=== PATIENT | female | born 1990 | race Caucasian/White ===

== ENCOUNTER 2017-05-20 04:16 | Inpatient (IN) | payer OTHER ==
[2017-05-20] MEDS ORDERED: Dibucaine 1% 28.35 GM TUBE PR PRN (06:10)
[2017-05-20] MEDS ORDERED: Glycerin ADULT SUPP PR PRN (06:10)
[2017-05-20] MEDS ORDERED: Varicella Virus Vaccine Live* 0.5 ML VIAL SUBCUT ONE (06:10)
[2017-05-20] MEDS ORDERED: Witch Hazel PAD* JAR TOPICAL PRN (06:10)
[2017-05-20] MEDS ORDERED: Measles, Mumps,Rubella VACC* 0.5 ML/VIAL SUBCUT ONE (06:10)
[2017-05-20] MEDS ORDERED: Acetaminophen TAB* 325 MG PO PRN (06:10)
[2017-05-20] MEDS ORDERED: OXYTOCIN* 10 UNITS/ML 1 ML VIAL IM ONE (06:10)
[2017-05-20] MEDS: Ibuprofen TAB* 600 MG PO PRN ×3 (06:44→21:51)
[2017-05-20] MEDS ORDERED: Misoprostol TAB* 200 MCG ONE (08:02)
[2017-05-20] MEDS ORDERED: Misoprostol TAB* 200 MCG PO ONE (08:14)
[2017-05-20] MEDS ORDERED: Simethicone CHEW TAB* 80 MG PO SCH (08:30)
[2017-05-20] MEDS ORDERED: Buprenorphine TAB* 8 MG PO SCH ×2 (09:00→17:00)
[2017-05-20] MEDS: Buprenorphine TAB* 8 MG PO SCH ×2 (11:00→18:38)
[2017-05-20] MEDS: Docusate CAP* 100 MG PO SCH ×3 (11:01→21:51)
[2017-05-21 07:13] LABS: Hematocrit 35 % (35-47); Hemoglobin 11.3 g/dl (12.0-16.0); Mean Corpuscular HGB Conc 33 g/dl (31-36); Mean Corpuscular Hemoglobin 27 pg (27-31); Mean Corpuscular Volume 81 fL (80-97); Mean Platelet Volume 12 um3 (7.4-10.4); Red Blood Count 4.24 10^6/ul (4.0-5.4); Red Cell Distribution Width 14 % (10.5-15); White Blood Count 9.3 10^3/ul (3.5-10.8)
[2017-05-21] MEDS: Docusate CAP* 100 MG PO SCH ×3 (08:55→20:38)
[2017-05-21] MEDS: Buprenorphine TAB* 8 MG PO SCH ×2 (08:55→17:12)
[2017-05-21] MEDS ORDERED: Ferrous Gluconate TAB* 324 MG TAB PO SCH (09:00)
[2017-05-22 08:12] VITALS: BP 139/79
[2017-05-22] MEDS: Buprenorphine TAB* 8 MG PO SCH ×2 (10:17→18:30)
[2017-05-22] MEDS: Docusate CAP* 100 MG PO SCH ×2 (10:18→15:35)
[2017-05-23 21:08] LABS: Urine Tetrahydrocannabinol Negative ng/mL (Cutoff: 50)
== END 2017-05-22 20:32 | disposition home or self-care (01) | DRG 541 ==
LOC: MCHOBOUT 04:16 → MCHOB 04:32
PROVIDERS: ADMIT Midwife; ATTEND Obstetrics & Gynecology
PROC: 4A1HX4Z Monitoring of Products of Conception, Cardiac Electrical Activity, External Approach (ICD-10-PCS; principal; 2017-05-20)
PROC: 10E0XZZ Delivery of Products of Conception, External Approach (ICD-10-PCS; 2017-05-20)
PROC: 10D17ZZ Extraction of Products of Conception, Retained, Via Natural or Artificial Opening (ICD-10-PCS; 2017-05-20)
DX: O69.89X0 Labor and delivery complicated by other cord complications, not applicable or unspecified (principal); O98.42 Viral hepatitis complicating childbirth; O48.0 Post-term pregnancy; B19.20 Unspecified viral hepatitis C without hepatic coma; O99.824 Streptococcus B carrier state complicating childbirth; Z3A.40 40 weeks gestation of pregnancy; Z37.0 Single live birth; O71.89 Other specified obstetric trauma
CPT/HCPCS: 36415; 80307; 85025; A9270-GY; J2590

== ENCOUNTER 2019-03-21 10:00 | Emergency (ER) | payer OTHER ==
--- NOTE | 2019-03-21 10:54 | UC ---
Back Pain HPI - HPI Summary HPI Summary: 28 yo female presents with cloudy and malodorous urine for the last 3 days. Today developed left flank pain. She has never had a UTI before, but states her friend told her this is what might be happening. She has had no injury to her back recently. Denies fever, n/v, vaginal bleeding or discharge. She also mentions that for the last 2-3 months she has been having intermittent right hip pain without known injury. Nothing makes it better or worse and occurs at random times. - History of Current Complaint Chief Complaint: UCGeneralIllness Stated Complaint: LOWER BACK PAIN Time Seen by Provider: 03/21/19 10:53 Hx Obtained From: Patient Hx Last Menstrual Period: iud Onset/Duration: Gradual Onset Timing: Constant Severity Initially: Moderate Severity Currently: Moderate Pain Intensity: 8 Pain Scale Used: 0-10 Numeric - Allergies/Home Medications Allergies/Adverse Reactions: Allergies Allergy/AdvReac Type Severity Reaction Status Date / Time No Known Allergies Allergy Verified 03/21/19 10:13 PMH/Surg Hx/FS Hx/Imm Hx - Additional Past Medical History Additional PMH: Hx of drug abuse - Surgical History Surgical History: None Surgery Procedure, Year, and Place: NONE - Family History Known Family History: Positive: Other - Social History Lives: With Family Alcohol Use: None Substance Use Type: None Substance Use Comment - Amount & Last Used: prescribed subutex from [facility] Smoking Status (MU): Never Smoked Tobacco Have You Smoked in the Last Year: No - Immunization History Most Recent Influenza Vaccination: unknown Most Recent Tetanus Shot: 07/22/15 Most Recent Pneumonia Vaccination: na Review of Systems All Other Systems Reviewed And Are Negative: Yes Constitutional: Positive: Negative Skin: Positive: Negative Respiratory: Positive: Negative Cardiovascular: Positive: Negative Gastrointestinal: Positive: Negative Genitourinary: Positive: Dysuria, Other - Left flank pain Neurological: Positive: Negative Psychological: Positive: Negative Physical Exam - Summary Physical Exam Summary: GENERAL: WDWN. Mild pain distress dt left flank SKIN: No rashes, sores, lesions, or open wounds. NECK: Supple. Nontender. No lymphadenopathy. CHEST: CTAB. No r/r/w. No accessory muscle use. Breathing comfortably and in no distress. CV: RRR. Without m/r/g. Pulses intact. Cap refill <2seconds ABDOMEN: Soft. NTTP. No distention or guarding. Mild LEFT CVA tenderness. Bowel sounds present MSK: NTTP lumbar paraspinal muscles or right hip. FROM b/l LE without pain. NEURO: Alert. PSYCH: Age appropriate behavior. Triage Information Reviewed: Yes Vital Signs: Initial Vital Signs Temp 98 F 03/21/19 10:10 Pulse 103 03/21/19 10:10 Resp 18 03/21/19 10:10 BP 115/66 03/21/19 10:10 Pulse Ox 100 03/21/19 10:10 Laboratory Tests 03/21/19 10:54 POC Urine Color Yellow POC Urine Clarity Cloudy POC Urine pH 6.5 POC Ur Specif [place] 1.020 POC Urine Protein 2+ A POC Ur Glucose (UA) Negative POC Urine Ketones Negative POC Urine Blood 3+ A POC Urine Nitrite Positive A POC Urine Bilirubin Negative POC Urine Urobilinogen 0.2 POC U Leukocyte Esteras 2+ A Vital Signs Reviewed: Yes Back Pain Course/Dx - Course Course Of Treatment: UA positive, but given degree of pain will CT for possible calculi at this time. CT: IMPRESSION: 1. NO EVIDENCE FOR ACUTE INTRA-ABDOMINAL ABNORMALITY. 2. LUCENT LESIONS IN THE RIGHT ACETABULUM RECOMMEND AN X-RAY OF THE RIGHT HIP FOR FURTHER EVALUATION. 3. LARGE AMOUNT RETAINED STOOL. Hip XR: IMPRESSION: THE PREVIOUSLY NOTED LUCENT LESIONS NOTED ON THE CT EXAM ARE NOT WELL SEEN. RECOMMEND A BONE SCAN FOR FURTHER EVALUATION. Discussed results with pt. Given her progressing pain and symptoms she was given Ceftriaxone 1gm in the clinic. Will rx for macrobid and pyridium. Discussed importance of follow up with her PCP regarding right hip findings with atraumatic pain - she states she will f/u - Differential Dx/Diagnosis Provider Diagnosis: UTI (urinary tract infection), Flank pain, Right hip pain Discharge - Sign-Out/Discharge Documenting (check all that apply): Patient Departure All imaging exams completed and their final reports reviewed: Yes - Discharge Plan Condition: Stable Disposition: HOME Prescriptions: Nitrofurantoin Monohyd/M-Cryst [Macrobid 100 mg Capsule] 100 mg PO BID #10 cap Phenazopyridine 200 mg (NF) [Pyridium 200 MG tab *] 200 mg PO TID #6 tab Patient Education Materials: Urinary Tract Infection in Women (ED) Forms: *Work Release Referrals: Roldan Concepcion MD [Primary Care Provider] - 1 Week Additional Instructions: If you develop a fever, shortness of breath, chest pain, new or worsening symptoms - please call your PCP or go to the ED immediately. 1) Please follow up with your primary doctor within 1-2weeks for a recheck of the lesions on your hip - Billing Disposition and Condition Condition: STABLE Disposition: Home
[2019-03-21] MEDS ORDERED: Lidocaine 1%* 5 ML VIAL INJ ONE (11:24)
[2019-03-21] MEDS ORDERED: cefTRIAXone VIAL(*) 1,000 MG VIAL IM ONE (11:24)
[2019-03-21 12:42] VITALS: BP 110/64
== END 2019-03-21 12:37 | disposition home or self-care (01) ==
LOC: UCEAST 10:00
DX: N39.0 Urinary tract infection, site not specified (principal); R10.9 Unspecified abdominal pain; M25.551 Pain in right hip
CPT/HCPCS: 74176; 81003; 87077; 87086; 87186; 96372; 99212; G0463; J0696

== ENCOUNTER 2019-05-30 23:26 | Emergency (ER) | payer OTHER ==
[2019-05-30] MEDS ORDERED: Tenofovir/Emtricitab 200/300 * TAB PO ONE (23:55)
[2019-05-30] MEDS ORDERED: Raltegravir* 400 MG TAB PO ONE (23:55)
--- NOTE | 2019-05-31 00:01 | ED ---
Skin Complaint - HPI Summary HPI Summary: [facility] patient complains of accidental needlestick injury today to tip of fourth digit of left hand with possible body fluid exposure. 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 Admits to bleeding from injury. Bleeding currently controlled. Denies any other symptoms, pain or injury. Medical history is none. - History of Current Complaint Chief Complaint: EDExposureBodyFluid Time Seen by Provider: 05/30/19 23:49 Stated Complaint: NEEDLE STICK PER PT Hx Obtained From: Patient Hx Last Menstrual Period: iud Onset/Duration: Started Minutes Ago Skin Exposure Onset/Duration: Minutes Ago Current Severity: None Pain Intensity: 0 Pain Scale Used: 0-10 Numeric Aggravating Symptom(s): Nothing Alleviating Symptom(s): Nothing Associated Signs & Symptoms: Negative - Allergy/Home Medications Allergies/Adverse Reactions: Allergies Allergy/AdvReac Type Severity Reaction Status Date / Time No Known Allergies Allergy Verified 05/30/19 23:31 PMH/Surg Hx/FS Hx/Imm Hx Endocrine/Hematology History: Denies: Hx Anticoagulant Therapy Cardiovascular History: Denies: Hx Pacemaker/ICD History: Denies: Hx Dialysis Sensory History: Denies: Hx Legally Blind, Hx Deafness Opthamlomology History: Denies: Hx Eye Prosthesis EENT History: Denies: Hx Deafness Neurological History: Denies: Hx Dementia Psychiatric History: Reports: Hx Anxiety, Hx Depression, Hx Substance Abuse - Surgical History Surgery Procedure, Year, and Place: NONE Infectious Disease History: No Infectious Disease History: Denies: Traveled Outside the [place] in Last 30 Days - Family History Known Family History: Positive: Other - Social History Alcohol Use: None Hx Substance Use: No Substance Use Type: Reports: None Substance Use Comment - Amount & Last Used: prescribed subutex from [facility] Hx Tobacco Use: No Smoking Status (MU): Never Smoked Tobacco Have You Smoked in the Last Year: No Review of Systems Constitutional: Negative Eyes: Negative ENT: Negative Cardiovascular: Negative Respiratory: Negative Gastrointestinal: Negative Genitourinary: Negative Musculoskeletal: Negative Skin: Other Neurological: Negative Psychological: Normal All Other Systems Reviewed And Are Negative: Yes Physical Exam - Summary Physical Exam Summary: No observable wound to distal tip of the fourth digit of left hand. Triage Information Reviewed: Yes Vital Signs On Initial Exam: Initial Vitals Temp Pulse Resp BP Pulse Ox 98.1 F 68 16 115/58 99 08/01/19 23:29 05/30/19 23:29 05/30/19 23:29 05/30/19 23:29 05/30/19 23:29 Vital Signs Reviewed: Yes Appearance: Positive: Well-Appearing Skin: Positive: Warm Head/Face: Positive: Normal Head/Face Inspection Eyes: Positive: Normal Neck: Positive: Supple Respiratory/Lung Sounds: Positive: Clear to Auscultation Cardiovascular: Positive: Normal Abdomen Description: Positive: Nontender Musculoskeletal: Positive: Normal Neurological: Positive: Normal Psychiatric: Positive: Normal AVPU Assessment: Alert - Maisha Coma Scale Best Eye Response: 4 - Spontaneous Best Motor Response: 6 - Obeys Commands Best Verbal Response: 5 - Oriented Coma Scale Total: 15 Diagnostics - Vital Signs Vital Signs Temp Pulse Resp BP Pulse Ox 05/30/19 23:29 98.1 F 68 16 115/58 99 - Laboratory Result Diagrams: 05/31/19 01:48 05/30/19 23:55 Lab Statement: Any lab studies that have been ordered have been reviewed, and results considered in the medical decision making process. Course/Dx - Course Course Of Treatment: [facility] [place] patient complains of accidental needlestick injury today to tip of fourth digit of left hand with possible body fluid exposure. 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 Bleeding currently controlled. Denies any other symptoms, pain or injury. Medical history is none. Vital signs within normal limits. Patient given Truvada 200/300 mg 1 tablet by mouth and Isentress 400 mg times one tablet by mouth here in the ED. Patient provided with remaining 6 pills of Truvada 200/300 from [facility] took over 7 days of treatment. Patient provided with remaining 13 pills of Isentress 400 mg to cover 7 days worth of treatment. Handwritten prescription for both Truvada 200/300 mg and Isentress 400 mg to cover remaining 23 days of required treatment. - Diagnoses Provider Diagnoses: Needlestick injury accident, Exposure to body fluid due to accidental needlestick injury Discharge - Sign-Out/Discharge Documenting (check all that apply): Patient Departure Patient Received Moderate/Deep Sedation with Procedure: No - Discharge Plan Condition: Stable Disposition: HOME Prescriptions: Emtricitabine/Tenofovir (Tdf) [Truvada 200 mg-300 mg Tablet] 1 each PO DAILY 7 Days #7 tablet Raltegravir* [Isentress*] 400 mg PO BID 7 Days #14 tab Patient Education Materials: Postexposure Prophylaxis (ED) Referrals: Roldan Concepcion MD [Primary Care Provider] - Additional Instructions: Prescription further for 7 days has been written from the ED. Follow-up with primary care for prescription for remaining 14 days of prophylaxis. - Billing Disposition and Condition Condition: STABLE Disposition: Home
[2019-05-31 00:26] VITALS: BP 105/89
[2019-05-31 00:56] LABS: HIV 4th Generation Negative (Negative)
[2019-05-31] MEDS ORDERED: Tetan/Diph/Pertus SYR(Tdap)* 0.5 ML SYR(BOOSTRIX) use SYR IM ONE (00:57)
[2019-05-31 01:09] LABS: Albumin 4.4 g/dL (3.2-5.2); Anion Gap 7 mmol/L (2-11); CO2 Carbon Dioxide 28 mmol/L (22-32); Calcium 10.5 mg/dL (8.6-10.3); Chloride 105 mmol/L (101-111); Potassium 3.9 mmol/L (3.5-5.0); Sodium 140 mmol/L (135-145)
[2019-05-31 01:15] LABS: ALT 44 U/L (7-52); AST 43 U/L (13-39); Albumin/Globulin Ratio 1.3 (1-3); Alkaline Phosphatase 57 U/L (34-104); BUN/Creatinine Ratio 16.3 (8-20); Blood Urea Nitrogen 14 mg/dL (6-24); EGFR African American 95.8 (>60); EGFR Non-African American 79.2 (>60); Globulin 3.3 g/dL (2-4); Glucose 93 mg/dL (70-100); Total Protein 7.7 g/dL (6.4-8.9)
[2019-05-31 01:19] LABS: HCG Pregnancy < 0.60 mIU/mL
[2019-05-31 01:53] LABS: Hepatitis B Surface Antigen Negative (Negative)
[2019-05-31 01:59] LABS: ABS Basophils 0.1 10^3/ul (0-0.2); ABS Eosinophils 0.2 10^3/ul (0-0.6); ABS Lymphocytes 3.5 10^3/ul (1.0-4.8); ABS Monocytes 0.7 10^3/ul (0-0.8); ABS Neutrophils 4.7 10^3/ul (1.5-7.7); Eosinophil % 1.8 %; Hematocrit 38 % (35-47); Hemoglobin 13.2 g/dL (12.0-16.0); Lymphocyte % 38.5 %; Mean Corpuscular HGB Conc 35 g/dL (31-36); Mean Corpuscular Hemoglobin 28 pg (27-31); Mean Corpuscular Volume 81 fL (80-97); Mean Platelet Volume 9.9 fL (7.4-10.4); Nucleated Red Blood Cells % 0.1; Platelet Count 270 10^3/uL (150-450); Red Blood Count 4.69 10^6 /uL (3.70-4.87); Red Cell Distribution Width 13 % (10-15); White Blood Count 9.2 10^3/uL (3.5-10.8)
[2019-05-31] MEDS ORDERED: Raltegravir* 400 MG TAB PO ONE ×2 (02:05→03:00)
[2019-05-31 02:10] LABS: Hepatitis B Surface Ab Immune (Immune)
[2019-05-31] MEDS ORDERED: Tenofovir/Emtricitab 200/300 * TAB PO ONE (03:00)
[2019-05-31 05:10] LABS: Hepatitis C Antibody Reactive (Negative)
--- NOTE | 2019-05-31 08:36 | ED ---
Progress - Progress Note Progress Note: Left msg on voicemail to return a call regarding Hep C positive. Plan for f/u PCP Course/Dx - Course Course Of Treatment: [facility] [place] patient complains of accidental needlestick injury today to tip of fourth digit of left hand with possible body fluid exposure. 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 Bleeding currently controlled. Denies any other symptoms, pain or injury. Medical history is none. Vital signs within normal limits. Patient given Truvada 200/300 mg 1 tablet by mouth and Isentress 400 mg times one tablet by mouth here in the ED. Patient provided with remaining 6 pills of Truvada 200/300 from [facility] took over 7 days of treatment. Patient provided with remaining 13 pills of Isentress 400 mg to cover 7 days worth of treatment. Handwritten prescription for both Truvada 200/300 mg and Isentress 400 mg to cover remaining 23 days of required treatment. - Diagnoses Provider Diagnoses: Needlestick injury accident, Exposure to body fluid due to accidental needlestick injury Discharge - Discharge Plan Condition: Stable Disposition: HOME Prescriptions: Emtricitabine/Tenofovir (Tdf) [Truvada 200 mg-300 mg Tablet] 1 each PO DAILY 7 Days #7 tablet Raltegravir* [Isentress*] 400 mg PO BID 7 Days #14 tab Patient Education Materials: Postexposure Prophylaxis (ED) Referrals: Roldan Concepcion MD [Primary Care Provider] - Additional Instructions: Prescription further for 7 days has been written from the ED. Follow-up with primary care for prescription for remaining 14 days of prophylaxis. - Billing Disposition and Condition Condition: STABLE Disposition: Home
[2019-06-01] MEDS ORDERED: Tenofovir/Emtricitab 200/300 * TAB PO SCH (09:00)
== END 2019-05-31 00:25 | disposition home or self-care (01) ==
LOC: ED 23:26
DX: S61.235A Puncture wound without foreign body of left ring finger without damage to nail, initial encounter (principal); Z77.21 Contact with and (suspected) exposure to potentially hazardous body fluids; Z23 Encounter for immunization; W46.0XXA Contact with hypodermic needle, initial encounter; Y92.89 Other specified places as the place of occurrence of the external cause; Y99.0 Civilian activity done for income or pay
CPT/HCPCS: 36415; 80053; 84702; 85025; 86706; 86803; 87340; 87389; 87522; 90471; 90715; 99282

== ENCOUNTER 2019-06-29 10:41 | Emergency (ER) | payer BC, OTHER ==
[2019-06-29 10:52] VITALS: BP 127/74
--- NOTE | 2019-06-29 11:20 | UC ---
Complaint Female HPI - HPI Summary HPI Summary: 28-year-old woman comes in with a chief complaint of burning with urination and dysuria urgency frequency for almost 2 weeks. It's been getting worse last couple of days. Does have some suprapubic discomfort. Denies any flank pain or fevers or chills. Patient had a UTI back in February 2019 and this reminds her of the same symptoms. She has Mirena. Denies any abnormal vaginal discharge or any concern of STI. - History Of Current Complaint Chief Complaint: UCGU Stated Complaint: URINARY ISSUE Time Seen by Provider: 06/29/19 11:08 Hx Last Menstrual Period: IRREGULAR Pain Intensity: 8 - Allergies/Home Medications Allergies/Adverse Reactions: Allergies Allergy/AdvReac Type Severity Reaction Status Date / Time No Known Allergies Allergy Verified 06/29/19 10:52 Home Medications: Home Medications Topiramate TAB(*) [Topamax 25 MG tab] 25 mg PO BEDTIME 06/29/19 [History Confirmed 06/29/19] PMH/Surg Hx/FS Hx/Imm Hx Previously Healthy: Yes Other History Of: Negative For: Anticoagulant Therapy - Surgical History Surgical History: None Surgery Procedure, Year, and Place: NONE - Family History Known Family History: Positive: Other - Social History Alcohol Use: Occasionally Substance Use Type: None Substance Use Comment - Amount & Last Used: prescribed subutex from [facility] Smoking Status (MU): Never Smoked Tobacco Have You Smoked in the Last Year: No - Immunization History Most Recent Influenza Vaccination: unknown Most Recent Tetanus Shot: 07/22/15 Most Recent Pneumonia Vaccination: na Review of Systems All Other Systems Reviewed And Are Negative: Yes Constitutional: Positive: Negative Skin: Positive: Negative Eyes: Positive: Negative ENT: Positive: Negative Respiratory: Positive: Negative Cardiovascular: Positive: Negative Gastrointestinal: Positive: Other - SEE HPI Genitourinary: Positive: Dysuria, Frequency, Urgency Motor: Positive: Negative Neurovascular: Positive: Negative Musculoskeletal: Positive: Negative Neurological: Positive: Negative Psychological: Positive: Negative Is Patient Immunocompromised?: No Physical Exam Triage Information Reviewed: Yes Appearance: Well-Appearing, No Pain Distress, Well-Nourished Vital Signs: Initial Vital Signs Temp 98.4 F 06/29/19 10:47 Pulse 77 06/29/19 10:47 Resp 18 06/29/19 10:47 BP 127/74 06/29/19 10:47 Pulse Ox 98 06/29/19 10:47 Vital Signs Reviewed: Yes Eye Exam: Normal Eyes: Positive: Conjunctiva Clear Neck: Positive: Supple Respiratory: Positive: Lungs clear, Normal breath sounds, No respiratory distress Cardiovascular: Positive: RRR Abdomen Description: Negative: CVA Tenderness (R), CVA Tenderness (L) Musculoskeletal: Positive: Strength Intact, ROM Intact Neurological Exam: Normal Neurological: Positive: Alert, Muscle Tone Normal Psychological: Positive: Age Appropriate Behavior Skin Exam: Normal Complaint Female Dx - Differential Dx/Diagnosis Provider Diagnosis: UTI (urinary tract infection) Discharge ED - Sign-Out/Discharge Documenting (check all that apply): Patient Departure All imaging exams completed and their final reports reviewed: No Studies - Discharge Plan Condition: Stable Disposition: HOME Prescriptions: Nitrofurantoin Monohyd/M-Cryst [Macrobid 100 mg Capsule] 100 mg PO BID #14 cap Phenazopyridine 200 mg (NF) [Pyridium 200 MG tab *] 200 mg PO TID PRN #6 tab PRN Reason: Pain - Mild Patient Education Materials: Urinary Tract Infection in Women (ED) Referrals: Roldan Concepcion MD [Primary Care Provider] - Additional Instructions: FOLLOW UP WITH YOUR DOCTOR IF NOT COMPLETELY IMPROVED. GET RECHECKED SOONER IF YOUR CONDITION WORSENS OR ANY QUESTIONS OR CONCERNS. - Billing Disposition and Condition Condition: STABLE Disposition: Home
== END 2019-06-29 11:22 | disposition home or self-care (01) ==
LOC: UCEAST 10:41
DX: N39.0 Urinary tract infection, site not specified (principal)
CPT/HCPCS: 81003; 84702; 87077; 87086; 87186; 99212; G0463

== ENCOUNTER 2019-07-24 16:05 | Emergency (ER) | payer BC ==
[2019-07-24 16:30] VITALS: BP 97/48
--- NOTE | 2019-07-24 17:07 | UC ---
Abdominal Pain Female HPI - HPI Summary HPI Summary: Patient presents to urgent care stating this morning she developed some dysuria. Patient with frequency. States her urine is cloudy and has noted. No hematuria. No vaginal discharge,, odor. Patient's concerned this is her third UTI or possibly 4 months. Patient's never had this before. Patient has any vaginal discharge, itching or odor. Patient without any concern for STI. Patient any back pain. No abdominal pain. Patient does have a pelvic exam routine scheduled for next month with her primary. Patient states she is not . Patient's medications reviewed this visit. - History of Current Complaint Chief Complaint: UCGU Stated Complaint: UTI Time Seen by Provider: 07/24/19 16:38 Hx Obtained From: Patient Hx Last Menstrual Period: unknown Pain Intensity: 6 Allergies/Adverse Reactions: Allergies Allergy/AdvReac Type Severity Reaction Status Date / Time No Known Allergies Allergy Verified 07/24/19 16:30 PMH/Surg Hx/FS Hx/Imm Hx Previously Healthy: Yes Cancer History: Other - substance use disorder Other History Of: Negative For: Anticoagulant Therapy - Surgical History Surgical History: None Surgery Procedure, Year, and Place: NONE - Family History Known Family History: Positive: Other - Social History Alcohol Use: Occasionally Substance Use Type: None Substance Use Comment - Amount & Last Used: prescribed subutex from [facility] Smoking Status (MU): Never Smoked Tobacco Have You Smoked in the Last Year: No - Immunization History Most Recent Influenza Vaccination: unknown Most Recent Tetanus Shot: 07/22/15 Most Recent Pneumonia Vaccination: na Review of Systems All Other Systems Reviewed And Are Negative: Yes Constitutional: Positive: Negative Genitourinary: Positive: Dysuria, Frequency, Urgency. Negative: Hematuria, Vaginal/Penile Burning, Vaginal/Penile Itching, Vaginal/Penile Discharge, Vaginal/Penile Pain, Vaginal/Penile Tenderness Is Patient Immunocompromised?: No Physical Exam - Summary Physical Exam Summary: Vital Signs Reviewed: Yes A+Ox3, no distress Eyes: Conjunctiva Clear ENT: Hearing grossly normal neck: supple Respiratory: Positive: No respiratory distress, No accessory muscle use Cardiovascular: skin color reflect adequate perfusion abd: soft + BS no guarding, no rebound no CVA Musculoskeletal Exam: WEIR x 4 without difficulty Neurological: Positive: Alert, ambulatory without difficulty Psychological: Positive: Normal Response To examiner Skin: Positive: no rash, no ecchymosis Triage Information Reviewed: Yes Vital Signs: Initial Vital Signs Temp 98.5 F 07/24/19 16:23 Pulse 61 07/24/19 16:23 Resp 16 07/24/19 16:23 BP 97/48 07/24/19 16:23 Abd Pain Female Course/Dx - Course Course Of Treatment: Patient presents to urgent care for evaluation of recurrent UTI. Patient states symptoms started this morning. Patient says dysuria frequency and urgency. No back pain. No nausea vomiting. No vaginal discharge. No history of concern of STI. On exam vital signs are stable. Patient not concerning exam. Patient's urine consistent with UTI. Did review recent cultures patient' s pansensitive. We'll culture urine and start patient on Macrobid. Patient declined Pyridium. Discussed with patient recommend follow-up with urology she keeps having recurrent symptoms. States this is not urgent that recommendation. Patient comfortable agreement with plan. - Differential Dx/Diagnosis Provider Diagnosis: Dysuria Discharge ED - Sign-Out/Discharge Documenting (check all that apply): Patient Departure All imaging exams completed and their final reports reviewed: No Studies - Discharge Plan Condition: Stable Disposition: HOME Prescriptions: Nitrofurantoin Monohyd/M-Cryst [Macrobid 100 mg Capsule] 100 mg PO BID #14 cap Patient Education Materials: Urinary Tract Infection in Women (ED) Referrals: Roldan Concepcion MD [Primary Care Provider] - Davey Alexander MD [Medical Doctor] - Additional Instructions: - stay well hydrated - drink plenty of non-alcoholic, non caffinated beverages - your urine will be further tested - if you require any changes to your treatment, we will contact you - this usually take 2 days - Contact your primary doctor to arrange a follow-up appointment next week. Contact your doctor or return with questions or concerns - Take your antibiotics exactly as prescribed until gone - Okay to alternate ibuprofen (Advil, Motrin) and Tylenol every 3 hours for pain. Take with food - Because of your repeat infections - it is recommended you schedule a follow- up appointment with the urologist - Call your doctor or return with questions or concerns - if you develop fevers , vomiting, back pain or other concerns it is recommended you go to the emergency department for further evaluation and treatment - Billing Disposition and Condition Condition: STABLE Disposition: Home
== END 2019-07-24 17:20 | disposition home or self-care (01) ==
LOC: UCEAST 16:05
DX: R30.0 Dysuria (principal)
CPT/HCPCS: 81003; 84702; 87077; 87086; 87186; 99212; G0463